=== PATIENT | female | born 1970 | race Caucasian/White ===

== ENCOUNTER 2019-02-20 23:29 | Emergency (ER) | payer SELFPAY ==
[~2019-02-20] VITALS: Ht 167.6 cm; Wt 94.9 kg
[2019-02-21 00:09] VITALS: Ht 167.6 cm; Wt 94.9 kg
[2019-02-21 02:14] VITALS: BP 134/62
== END 2019-02-21 02:14 | disposition home or self-care (01) ==
LOC: ED 23:29
DX: S62.305A Unspecified fracture of fourth metacarpal bone, left hand, initial encounter for closed fracture (principal); S62.307A Unspecified fracture of fifth metacarpal bone, left hand, initial encounter for closed fracture; Y93.89 Activity, other specified; Y92.89 Other specified places as the place of occurrence of the external cause; Y99.8 Other external cause status
CPT/HCPCS: Q0092